=== PATIENT | female | born 1980 | race Caucasian/White ===

== ENCOUNTER 2017-01-08 03:27 | Emergency (ER) | payer OTHER ==
[~2017-01-08] VITALS: Ht 170.2 cm; Wt 87.3 kg
[2017-01-08 05:23] LABS: CALCIUM 8.5 mg/dL (8.5-10.1); CARBON DIOXIDE 23.3 mmol/L (21-32); CHLORIDE SERUM 106 mmol/L (98-107); CREATININE SERUM 0.6 mg/dL (0.6-1.0); GFR1 > 60 mL/min; GLUCOSE SERUM 105 mg/dL (74-106); POTASSIUM SERUM 3.6 mmol/L (3.5-5.1); SODIUM SERUM 142 mmol/L (136-145)
[2017-01-08 05:26] LABS: BASOPHIL % 0.7 % (0-2); PLATELET COUNT 292 x10^3mcL (130-400); RED CELL DISTRIBUTION WIDTH 13.7 % (11.5-14.5)
[2017-01-08 05:36] LABS: ALBUMIN 3.9 g/dL (3.4-5.0); ALKALINE PHOSPHATASE 90 U/L (46-116); ALT/SGPT 17 U/L (14-59); AST/SGOT 16 U/L (15-37); BILIRUBIN TOTAL 0.34 mg/dL (0.20-1.00); T4(THYROXINE) 7.4 ug/dL (4.7-13.3); TOTAL PROTEIN, SERUM 7.2 g/dL (6.4-8.2)
[2017-01-08 06:01] VITALS: BP 122/77
== END 2017-01-08 06:01 | disposition home or self-care (01) ==
LOC: ED 03:27
PROVIDERS: Emergency Medicine
DX: F41.0 Panic disorder [episodic paroxysmal anxiety] (principal); F32.9 Major depressive disorder, single episode, unspecified

== ENCOUNTER 2019-01-25 08:37 | Emergency (ER) | payer OTHER ==
[~2019-01-25] VITALS: Ht 167.6 cm; Wt 72.6 kg
[2019-01-25 08:40] VITALS: Ht 167.6 cm; Wt 72.6 kg
[2019-01-25 09:47] LABS: PLATELET COUNT 226 x10^3mcL (130-400); RED CELL DISTRIBUTION WIDTH 14.3 % (11.5-14.5)
[2019-01-25 09:49] LABS: BASOPHIL % 0 % (0-2)
[2019-01-25 10:02] LABS: CALCIUM 9.1 mg/dL (8.5-10.1); CARBON DIOXIDE 26.1 mmol/L (21-32); CHLORIDE SERUM 103 mmol/L (98-107); CREATININE SERUM 0.8 mg/dL (0.6-1.0); GFR1 > 60 mL/min; GLUCOSE SERUM 103 mg/dL (74-106); SODIUM SERUM 139 mmol/L (136-145)
[2019-01-25 10:07] LABS: ALBUMIN 3.7 g/dL (3.4-5.0); ALKALINE PHOSPHATASE 100 U/L (46-116); ALT/SGPT 25 U/L (14-59); AST/SGOT 16 U/L (15-37); TOTAL PROTEIN, SERUM 7.2 g/dL (6.4-8.2)
[2019-01-25 13:39] VITALS: BP 100/62
== END 2019-01-25 13:39 | disposition home or self-care (01) ==
LOC: ED 08:37
PROVIDERS: Emergency Medicine
DX: R51 Headache (principal); R10.30 Lower abdominal pain, unspecified; R11.0 Nausea; F41.9 Anxiety disorder, unspecified; F32.9 Major depressive disorder, single episode, unspecified
CPT/HCPCS: J2270; J2405; J3010

== ENCOUNTER 2019-01-29 03:13 | Emergency (ER) | payer OTHER ==
[~2019-01-29] VITALS: Ht 170.2 cm; Wt 81.6 kg
[2019-01-29 03:20] VITALS: Ht 170.2 cm; Wt 81.6 kg
[2019-01-29 04:35] LABS: BASOPHIL % 0.1 % (0-2); PLATELET COUNT 154 x10^3mcL (130-400); RED CELL DISTRIBUTION WIDTH 14.5 % (11.5-14.5)
[2019-01-29 04:38] LABS: CALCIUM 8.2 mg/dL (8.5-10.1); CARBON DIOXIDE 23.7 mmol/L (21-32); CHLORIDE SERUM 101 mmol/L (98-107); CREATININE SERUM 0.5 mg/dL (0.6-1.0); GFR1 > 60 mL/min; GLUCOSE SERUM 137 mg/dL (74-106); POTASSIUM SERUM 3.5 mmol/L (3.5-5.1); SODIUM SERUM 136 mmol/L (136-145)
[2019-01-29 04:45] LABS: ALKALINE PHOSPHATASE 111 U/L (46-116); ALT/SGPT 40 U/L (14-59); AST/SGOT 14 U/L (15-37); BILIRUBIN TOTAL 0.7 mg/dL (0.20-1.00); TOTAL PROTEIN, SERUM 6.8 g/dL (6.4-8.2)
[2019-01-29 04:46] LABS: ALBUMIN 3.1 g/dL (3.4-5.0)
[2019-01-29 05:54] LABS: microscopic required? YES; urine erythrocyte 3+ (NEGATIVE)
[2019-01-29 06:52] VITALS: BP 105/60
== END 2019-01-29 06:52 | disposition home or self-care (01) ==
LOC: ED 03:13
PROVIDERS: Emergency Medicine
DX: N39.0 Urinary tract infection, site not specified (principal); M79.7 Fibromyalgia; F41.9 Anxiety disorder, unspecified; F32.9 Major depressive disorder, single episode, unspecified; Z98.51 Tubal ligation status
CPT/HCPCS: J0696; J1885; J2270; J2405; J7030; Q0092

== ENCOUNTER 2019-02-05 22:32 | Inpatient (IN) | payer OTHER ==
[~2019-02-05] VITALS: Ht 170.2 cm; Wt 88.1 kg
[2019-02-05 22:56] VITALS: Ht 170.2 cm; Wt 88.1 kg
[2019-02-06 01:49] LABS: CALCIUM 8.2 mg/dL (8.5-10.1); CARBON DIOXIDE 26.4 mmol/L (21-32); CHLORIDE SERUM 106 mmol/L (98-107); CREATININE SERUM 0.7 mg/dL (0.6-1.0); GFR1 > 60 mL/min; GLUCOSE SERUM 95 mg/dL (74-106); POTASSIUM SERUM 3.8 mmol/L (3.5-5.1); SODIUM SERUM 141 mmol/L (136-145)
[2019-02-06 01:55] LABS: ALKALINE PHOSPHATASE 72 U/L (46-116); ALT/SGPT 51 U/L (14-59); AST/SGOT 23 U/L (15-37); BILIRUBIN TOTAL 0.24 mg/dL (0.20-1.00); TOTAL PROTEIN, SERUM 6.3 g/dL (6.4-8.2)
[2019-02-06 01:57] LABS: ALBUMIN 3.1 g/dL (3.4-5.0)
[2019-02-06 02:04] LABS: BASOPHIL % 0.5 % (0-2); PLATELET COUNT 382 x10^3mcL (130-400)
[2019-02-06 02:08] LABS: RED CELL DISTRIBUTION WIDTH 15.2 % (11.5-14.5)
[2019-02-06 02:50] LABS: rbc morphology (normal/abnorm) ABNORMAL (NORMAL)
[2019-02-06 02:53] LABS: UA SPECIFIC GRAVITY 1.015 (1.005-1.035); microscopic required? YES
[2019-02-06 02:54] LABS: urine erythrocyte 3+ (NEGATIVE)
[2019-02-06] MEDS ORDERED: CETIRIZINE HYDR10 MG (04:26)
[2019-02-06] MEDS ORDERED: KEFLEX250 M1 (04:26)
[2019-02-06] MEDS ORDERED: NAPROXEN375 MG (04:26)
[2019-02-06] MEDS ORDERED: HYDROCHLOROTHIA50 MG (04:27)
[2019-02-06] MEDS ORDERED: CYMBALTA60 M1 (04:27)
[2019-02-06] MEDS ORDERED: ABILIFY20 M1 (04:27)
[2019-02-06] MEDS ORDERED: IBUPROFEN400 MG (04:27)
[2019-02-06] MEDS ORDERED: BANOPHEN25 MG (04:28)
[2019-02-06 04:57] VITALS: BP 107/48
[2019-02-06 08:31] VITALS: BP 102/47
[2019-02-06 11:57] VITALS: BP 101/58
[2019-02-06 15:59] VITALS: BP 99/81
[2019-02-06 20:20] VITALS: BP 103/50
[2019-02-07] VITALS (8 sets, daily range): BP systolic 108–118; BP diastolic 40–75
[2019-02-07 06:46] LABS: CALCIUM 7.8 mg/dL (8.5-10.1); CARBON DIOXIDE 27.7 mmol/L (21-32); CHLORIDE SERUM 106 mmol/L (98-107); CREATININE SERUM 0.7 mg/dL (0.6-1.0); GFR1 > 60 mL/min; GLUCOSE SERUM 102 mg/dL (74-106); MAGNESIUM 2.2 mg/dL (1.8-2.4); POTASSIUM SERUM 3.8 mmol/L (3.5-5.1); SODIUM SERUM 141 mmol/L (136-145)
[2019-02-07 06:57] LABS: TOTAL IRON BINDING CAPACITY 281 ug/dL (250-450)
[2019-02-07 07:00] LABS: IRON 14 ug/dL (50-170)
[2019-02-07 07:55] LABS: BASOPHIL % 0.4 % (0-2)
[2019-02-07 07:58] LABS: PLATELET COUNT 394 x10^3mcL (130-400); RED CELL DISTRIBUTION WIDTH 13.9 % (11.5-14.5)
[2019-02-08 00:48] VITALS: BP 115/51
[2019-02-08 05:07] VITALS: BP 100/50
[2019-02-08 07:21] LABS: CALCIUM 8.3 mg/dL (8.5-10.1); CARBON DIOXIDE 27.9 mmol/L (21-32); CHLORIDE SERUM 108 mmol/L (98-107); CREATININE SERUM 0.6 mg/dL (0.6-1.0); GFR1 > 60 mL/min; GLUCOSE SERUM 96 mg/dL (74-106); MAGNESIUM 2.3 mg/dL (1.8-2.4); SODIUM SERUM 142 mmol/L (136-145)
[2019-02-08 08:38] LABS: BASOPHIL % 0.6 % (0-2); PLATELET COUNT 319 x10^3mcL (130-400); RED CELL DISTRIBUTION WIDTH 14.5 % (11.5-14.5)
[2019-02-08 09:22] VITALS: BP 107/45
[2019-02-08] MEDS ORDERED: COL100 PO (13:24)
[2019-02-08] MEDS ORDERED: FER300 PO (13:24)
[2019-02-08 14:08] VITALS: BP 107/45
== END 2019-02-08 15:12 | disposition home or self-care (01) | DRG 517 ==
LOC: ED 22:32 → MU 02-06 03:55
PROVIDERS: Internal Medicine Pulmonary Disease; Obstetrics & Gynecology; Specialist; ADMIT Internal Medicine Pulmonary Disease
PROC: 30233N1 Transfusion of Nonautologous Red Blood Cells into Peripheral Vein, Percutaneous Approach (ICD-10-PCS; 2019-02-07)
PROC: 0UDB7ZZ Extraction of Endometrium, Via Natural or Artificial Opening (ICD-10-PCS; principal; 2019-02-07 21:30)
DX: N92.0 Excessive and frequent menstruation with regular cycle (principal); D64.9 Anemia, unspecified; N93.9 Abnormal uterine and vaginal bleeding, unspecified; M79.7 Fibromyalgia; N83.209 Unspecified ovarian cyst, unspecified side; G89.29 Other chronic pain; M54.9 Dorsalgia, unspecified; F41.8 Other specified anxiety disorders; Z87.440 Personal history of urinary (tract) infections; Z98.51 Tubal ligation status; Z79.899 Other long term (current) drug therapy
CPT/HCPCS: J1170; J1885; J2250; J2270; J2405; J3010; J7030; J7040; P9016

== ENCOUNTER 2019-04-23 06:07 | Day surgery (SDC) | payer OTHER ==
[~2019-04-23] VITALS: Ht 170.2 cm; Wt 86.2 kg
[~2019-04-23 06:07] MED LIST: ABILIFY20 M1; BANOPHEN25 MG; CETIRIZINE HYDR10 MG; COL100 PO; CYMBALTA60 M1; FER300 PO; HYDROCHLOROTHIA50 MG; IBUPROFEN400 MG; KEFLEX250 M1; NAPROXEN375 MG
[2019-04-23 06:22] VITALS: BP 116/74
[2019-04-23 12:34] VITALS: BP 135/80
== END 2019-04-23 11:40 | disposition home or self-care (01) ==
LOC: DS 06:07 → OR 07:30 → DS 07:30
PROVIDERS: Obstetrics & Gynecology
PROC: 0U5B7ZZ Destruction of Endometrium, Via Natural or Artificial Opening (ICD-10-PCS; 2019-04-23)
PROC: 0UDB7ZZ Extraction of Endometrium, Via Natural or Artificial Opening (ICD-10-PCS; principal; 2019-04-23 07:30)
DX: N92.1 Excessive and frequent menstruation with irregular cycle (principal); Z98.51 Tubal ligation status; Z90.49 Acquired absence of other specified parts of digestive tract
CPT/HCPCS: J0690; J1170; J2270; J2405; J2704; J3010; J7030; J7120

== ENCOUNTER 2019-04-23 06:07 | Day surgery (SDC) | payer OTHER | END 2019-04-23 11:40 | disposition home or self-care (01) | LOC: CANPRESDC → LB 06:07 → DS 06:07 → LB 09:25 → DS 11:40 | DX: N92.1 Excessive and frequent menstruation with irregular cycle (principal) | CPT/HCPCS: J0690; J2270 ==

== ENCOUNTER 2019-07-30 08:54 | Day surgery (SDC) | payer OTHER ==
[~2019-07-30] VITALS: Ht 170.2 cm; Wt 86.2 kg
[2019-07-30 09:34] VITALS: BP 134/78
[2019-07-30 16:25] VITALS: BP 129/86
== END 2019-07-30 15:40 | disposition home or self-care (01) ==
LOC: OR 08:54 → DS 08:54 → OR 10:00 → DS 15:40
DX: L72.0 Epidermal cyst (principal); F41.9 Anxiety disorder, unspecified; M79.7 Fibromyalgia; Z79.899 Other long term (current) drug therapy; Z98.51 Tubal ligation status; Z98.890 Other specified postprocedural states
CPT/HCPCS: J0690; J1170; J2270; J2405; J3010; J3490

== ENCOUNTER 2019-08-01 14:08 | Emergency (ER) | payer OTHER ==
[~2019-08-01] VITALS: Ht 170.2 cm; Wt 88.9 kg
[2019-08-01 14:13] VITALS: Ht 170.2 cm; Wt 88.9 kg
[2019-08-01 15:06] VITALS: BP 122/78
== END 2019-08-01 15:06 | disposition home or self-care (01) ==
LOC: ED 14:08
DX: Z48.01 Encounter for change or removal of surgical wound dressing (principal); F41.9 Anxiety disorder, unspecified; F32.9 Major depressive disorder, single episode, unspecified; M79.7 Fibromyalgia; Z98.890 Other specified postprocedural states